=== PATIENT | male | born 1950 | race Caucasian/White ===

== ENCOUNTER 2019-12-28 16:10 | Emergency (ER) | payer MEDICARE ==
[2019-12-28 16:55] LABS: HEMATOCRIT 44.5 % (42.0-52.0); HEMOGLOBIN 14.9 g/dL (13.5-18.0); MEAN CELL VOLUME 93 fl (78-100); MEAN CORPUSCULAR HEMOGLOBIN 31 pg (27-31); MEAN CORPUSCULAR HGB CONC 34 g/dL (33-37); MEAN PLATELET VOLUME 11.1 fl (7.4-10.4); PLATELET COUNT 252 K/mm3 (130-400); RED BLOOD COUNT 4.78 M/mm3 (4.20-5.60); RED CELL DISTRIBUTION WIDTH 12.4 % (11.5-14.5); WHITE BLOOD COUNT 16.3 K/mm3 (4.8-10.8)
[2019-12-28 17:05] LABS: ALBUMIN 4.6 g/dL (3.4-4.8)
[2019-12-28 17:06] LABS: POTASSIUM 3.2 mmol/L (3.5-5.1); SODIUM 136 mmol/L (136-145)
[2019-12-28 17:07] LABS: CALCIUM 10.1 mg/dL (8.3-10.5)
[2019-12-28 17:08] LABS: GLUCOSE 118 mg/dL (75-110); TOTAL PROTEIN 7.5 g/dL (6.2-8.1)
[2019-12-28 17:09] LABS: BAND 2 % (0-10); CARBON DIOXIDE 20 mmol/L (23-31); LYMPHOCYTE 15 % (20-51); MONOCYTE 3 % (3-10); NEUTROPHILS 79 % (42-75)
[2019-12-28 17:10] LABS: TOTAL BILIRUBIN 0.8 mg/dL (0.2-1.2)
[2019-12-28 17:13] LABS: AST-SGOT 24 U/L (5-34)
[2019-12-28 17:14] LABS: ALT/SGPT 17 U/L (0-55)
[2019-12-28 17:18] LABS: PROTHROMBIN TIME 10.1 SECONDS (9.0-12.0)
[2019-12-28 17:23] LABS: TROPONIN-I < 0.03 ng/mL (<0.030)
[2019-12-28 17:24] LABS: PARTIAL THROMBOPLASTIN TIME 22.2 SECONDS (21.0-32.0)
[2019-12-28 18:45] VITALS: BP 141/83
[2019-12-28] MEDS ORDERED: LOPRESSOR 225 MG/TAB PO (21:51)
[2019-12-28] MEDS ORDERED: LISINOPRIL AND1 TA1 PO (21:51)
[2019-12-28] MEDS ORDERED: ALPRAZOLAM0.5 M2 PO (21:52)
[2019-12-28] MEDS ORDERED: PRAVACHOL 20MG20 MG PO (21:52)
[2019-12-28] MEDS ORDERED: ASPIRIN E.C. 8181 MG PO (21:52)
[2019-12-28] MEDS ORDERED: OMEPRAZOLE40 MG PO (21:53)
[2019-12-28] MEDS ORDERED: MULTIVITAMIN1 SGL PO (21:53)
[2019-12-28] MEDS ORDERED: FLONASE ALLERG9.9 ML NS (21:53)
[2019-12-28] MEDS ORDERED: RT ALBUTEROL CC18 GM IH (21:53)
[2019-12-28] MEDS ORDERED: D3-20002000 UNIT PO (21:54)
[2019-12-28] MEDS ORDERED: MUCINEX 60600 MG/TA1 PO (21:54)
[2019-12-28] MEDS ORDERED: NATURAL VITAM1000 MG PO (21:54)
[2019-12-28] MEDS ORDERED: ZYRTEC ALLERGY10 MG PO (21:55)
== END 2019-12-28 18:45 | disposition short-term general hospital (02) ==
LOC: ED 16:10
PROVIDERS: Family Medicine
DX: I21.3 ST elevation (STEMI) myocardial infarction of unspecified site (principal); I97.89 Other postprocedural complications and disorders of the circulatory system, not elsewhere classified; I49.01 Ventricular fibrillation; I10 Essential (primary) hypertension; K21.9 Gastro-esophageal reflux disease without esophagitis; J44.9 Chronic obstructive pulmonary disease, unspecified; F17.210 Nicotine dependence, cigarettes, uncomplicated; Z79.82 Long term (current) use of aspirin; Z96.643 Presence of artificial hip joint, bilateral
CPT/HCPCS: J0282; J1644; J2270; J3101; J7060

== ENCOUNTER 2020-02-26 14:30 | Outpatient (RCR) | payer MEDICARE, OTHER ==
[~2020-02-26 14:30] MED LIST: ALPRAZOLAM0.5 M2 PO; ASPIRIN E.C. 8181 MG PO; D3-20002000 UNIT PO; FLONASE ALLERG9.9 ML NS; LISINOPRIL AND1 TA1 PO; LOPRESSOR 225 MG/TAB PO; MUCINEX 60600 MG/TA1 PO; MULTIVITAMIN1 SGL PO; NATURAL VITAM1000 MG PO; OMEPRAZOLE40 MG PO; PRAVACHOL 20MG20 MG PO; RT ALBUTEROL CC18 GM IH; ZYRTEC ALLERGY10 MG PO
== END 2020-04-11 | disposition home or self-care (01) ==
LOC: CARDREHAB
DX: Z48.812 Encounter for surgical aftercare following surgery on the circulatory system (principal); Z95.5 Presence of coronary angioplasty implant and graft; I21.9 Acute myocardial infarction, unspecified

== ENCOUNTER 2020-06-23 14:00 | Outpatient (RCR) | payer MEDICARE, OTHER | END 2020-07-11 | disposition home or self-care (01) | LOC: CARDREHAB | DX: Z48.812 Encounter for surgical aftercare following surgery on the circulatory system (principal); Z95.5 Presence of coronary angioplasty implant and graft; I25.2 Old myocardial infarction ==

== ENCOUNTER 2020-11-03 23:03 | Emergency (ER) | payer MEDICARE, OTHER ==
[2020-11-04 01:21] VITALS: BP 131/83
== END 2020-11-04 01:22 | disposition home or self-care (01) ==
LOC: ED 23:03
DX: R04.0 Epistaxis (principal); I10 Essential (primary) hypertension; I25.10 Atherosclerotic heart disease of native coronary artery without angina pectoris; Z95.0 Presence of cardiac pacemaker; Z95.9 Presence of cardiac and vascular implant and graft, unspecified; Z79.01 Long term (current) use of anticoagulants; Z79.82 Long term (current) use of aspirin; Z88.6 Allergy status to analgesic agent

== ENCOUNTER → 2022-05-25 | Outpatient (RCR) | payer MEDICARE, OTHER | LOC: PT | DX: M19.011 Primary osteoarthritis, right shoulder (principal) ==

== ENCOUNTER 2022-06-02 14:30 | Outpatient (RCR) | payer MEDICARE, OTHER | END 2022-06-25 | disposition home or self-care (01) | LOC: PT | DX: M19.011 Primary osteoarthritis, right shoulder (principal) ==

== ENCOUNTER → 2022-12-18 | Outpatient (CLI) | payer MEDICARE, OTHER ==
[~2022-12-18] MED LIST changes: +ALPRAZOLAM0.5 MG PO; +ANORO ELLIPTA1 POW IH; +ATORVASTATIN CA80 MG PO; +CLOPIDOGREL75 M2 PO; +HYDROCHLOROTHIA1 T15 PO; +ISOSORBIDE MONO60 M2 PO; +METOPROLOL SUCC25 M1 PO; +PRILOSEC 20MG20 MG PO; +SERTRALINE HYD100 MG PO
== END ==
LOC: RAD 10:31
DX: M75.101 Unspecified rotator cuff tear or rupture of right shoulder, not specified as traumatic (principal)

== ENCOUNTER 2023-01-30 12:59 | Outpatient (RCR) | payer MEDICARE, OTHER | END 2023-02-23 | disposition home or self-care (01) | LOC: PT | DX: Z96.611 Presence of right artificial shoulder joint (principal) ==

== ENCOUNTER → 2023-03-14 | Outpatient (CLI) | payer MEDICARE, OTHER ==
[~2023-03-14] MED LIST changes: +CALCIUM 600 MG-1 TAB PO; +CETIRIZINE HCL10 MG PO; +FLUTICASON0.05 MG/AC NS; +GOOD SENSE ASPI81 M1 PO; +LIPITOR 80MG80 MG PO; +LISINOPRIL40 MG PO; +METOPROLOL SUCC50 M1 PO; +MULTIVITAMIN1 EACH PO; +PRILOSEC OTC20 MG PO; +SODIUM CHLORI1000 M4 PO; +VITAMIN C PUR1000 MG PO
== END ==
LOC: RAD 10:00
DX: E87.1 Hypo-osmolality and hyponatremia (principal); R29.6 Repeated falls